=== PATIENT | female | born 1995 | race Caucasian/White ===

== ENCOUNTER 2018-12-13 08:47 | Emergency (ER) | payer MEDICAID, OTHER ==
[2018-12-13 08:51] VITALS: BMI 26.4
[2018-12-13 08:53] VITALS: O2SAT 100
[2018-12-13] MEDS ORDERED: Lactated Ringer's 1,000 ML IV SCH (11:00)
--- NOTE | 2018-12-13 11:12 | ED PDOC ---
HPI: Headache Time Seen by Provider: 12/13/18 10:32 Chief Complaint (Nursing): Headache History Per: Patient Additional Complaint(s): Pt. states yesterday evening she developed a bitemporal headache. Reports headache has progressively worsened. She also developed 2 episodes of non-bloody vomiting last night and 1 episode of non-bloody vomiting this morning after atte mpting to eat breakfast. Pt. further states she is currently 21 weeks and is under the the care of Dr. Whittaker. States before coming to ED room she was in the [facility] and where the baby was monitored and she was given Tylenol 650mg which has yet to provide any relief of headache. Headache was gradual in onset and is associated with light sensitivity. Also reports she normally drinks coffee daily but since she is she was advised by Dr. Whittaker to drink only half a cup of coffee/day. Yesterday and today she did not have any coffee. Denies fever, chills, hematemesis, abdominal pain, pelvic pain, vaginal bleeding, head injury, sudden onset of headache hx of preeclampsia, dysuria. Past Medical History Reviewed: Historical Data, Nursing Documentation, Vital Signs Vital Signs: Last Vital Signs Temp 98.8 F 12/13/18 08:51 Pulse 85 12/13/18 08:51 Resp 17 12/13/18 08:51 BP 105/68 12/13/18 08:51 Pulse Ox 100 12/13/18 08:51 - Surgical History Surgical History: Appendectomy - Family History Family History: States: No Known Family Hx - Living Arrangements Living Arrangements: With Family - Immunization History Hx Tetanus Toxoid Vaccination: No Hx Influenza Vaccination: No Hx Pneumococcal Vaccination: No - Home Medications Home Medications: Ambulatory Orders Medication Instructions Recorded Ciprofloxacin [Cipro] 1 tab PO BID #14 tab 08/24/15 Famotidine [Pepcid] 20 mg PO BID #20 tab 08/24/15 Ondansetron [Zofran Odt] 4 mg PO .Q4-6 H PRN #20 odt 08/24/15 Nitrofurantoin Macrocrystals 100 mg PO BID #14 cap 12/13/18 [Macrobid] - Allergies Allergies/Adverse Reactions: Allergies Allergy/AdvReac Type Severity Reaction Status Date / Time No Known Allergies Allergy Verified 08/24/15 12:36 Review of Systems ROS Statement: Except As Marked, All Systems Reviewed And Found Negative Gastrointestinal: Positive for: Vomiting Neurological: Positive for: Headache Physical Exam - Physical Exam Appears: Positive for: Well, Non-toxic, No Acute Distress Head Exam: Positive for: ATRAUMATIC, NORMAL INSPECTION, NORMOCEPHALIC Skin: Positive for: Normal Color, Warm. Negative for: Rash Eye Exam: Positive for: Normal appearance, EOMI, PERRL. Negative for: Nystagmus ENT: Positive for: Normal ENT Inspection Neck: Positive for: Normal, Painless ROM, Supple Gastrointestinal/Abdominal: Positive for: Normal Exam (gravid), Soft. Negative for: Tenderness Extremity: Positive for: Other (equal knot picker cloth strength b/l) Neurological/Psych: Positive for: Awake, Alert, Oriented (x3), Gait (steady, unassisted) - Laboratory Results Result Diagrams: 12/13/18 11:20 12/13/18 11:20 - ECG O2 Sat by Pulse Oximetry: 100 - Progress ED Course And Treament: Labs, UA, reglan 10mg PO, IV LR bolus ordered. Re-evaluation Time: 12:30 (Reports good relief of headache and nausea. Pt. had meal in ED without any vomiting. Advised to f/u with Dr. Whittaker (pt's states Dr. Whittaker was contacted while she was in the OB ED) for further evaluation but is to return to ED immediately if symptoms worsen.) Condition: Re-examined, Improved Disposition - Clinical Impression Clinical Impression: Acute headache, UTI (urinary tract infection) - Patient ED Disposition Is Patient to be Admitted: No - Disposition Referrals: Aden Whittaker MD [Staff Provider] - Disposition: Routine/Home Disposition Time: 12:45 Condition: IMPROVED Additional Instructions: FOLLOW UP WITH YOUR OBGYN PREVIOUSLY SCHEDULED RETURN TO ED IMMEDIATELY IF SYMPTOMS WORSEN JCARLOS GALLOWAY, thank you for letting us take care of you today. Your provider was Nav Cooper MD and you were treated for 21 WEEKS PREG; HEADACHE. The emergency medical care you received today was directed at your acute symptoms. If you were prescribed any medication, please fill it and take as directed. It may take several days for your symptoms to resolve. Return to the Emergency Department if your symptoms worsen, do not improve, or if you have any other problems. Please contact your doctor or call one of the physicians/clinics you have been referred to that are listed on the Patient Visit Information form that is included in your discharge packet. Bring any paperwork you were given at discharge with you along with any medications you are taking to your follow up visit. Our treatment cannot replace ongoing medical care by a primary care provider outside of the emergency department. Thank you for allowing the [facility] team to be part of your care today. If you had an X-Ray or CT scan: A Radiologist will review the ED reading if any change in treatment is needed we will contact you. If you had a blood, urine, or wound culture: It will take several days for the results, if any change in treatment is needed we will contact you. If you had an STI test: It will take 48 hours for the results. Please call after 1 week if you have not heard back. Prescriptions: Nitrofurantoin Macrocrystals [Macrobid] 100 mg PO BID #14 cap Instructions: Urinary Tract Infection, Adult (DC), Acute Headache (ED) Forms: [employer] (Italian), [facility] ED School/Work Excuse
[2018-12-13 11:37] LABS: BASO # 0.1 K/uL (0.0-0.2); BASO % 0.7 % (0.0-2.0); EOS % 0.3 % (0.0-4.0); HEMOGLOBIN 11.4 g/dL (12.0-16.0); LYMPH # 1.9 K/uL (1.0-4.3); LYMPH % 20.9 % (20.0-40.0); MEAN CELL VOLUME 95.1 fl (81.0-99.0); MEAN CORPUSCULAR HEMOGLOBIN 32.6 pg (27.0-31.0); MEAN CORPUSCULAR HGB CONC 34.2 g/dL (33.0-37.0); MEAN PLATELET VOLUME 8.7 fl (7.2-11.7); MONO # 0.5 K/uL (0.0-0.8); MONO % 5.7 % (0.0-10.0); NEUT # 6.7 K/uL (1.8-7.0); NEUT % 72.4 % (50.0-75.0); RBC 3.5 Mil/uL (3.80-5.20); RED CELL DISTRIBUTION WIDTH 13.6 % (11.5-14.5); WHITE BLOOD COUNT 9.2 K/uL (4.8-10.8)
[2018-12-13 11:47] LABS: ALB/GLOB RATIO 1.1 (1.0-2.1); ALBUMIN 3.9 g/dL (3.5-5.0); ALT/SGPT 25 U/L (9-52); AST/SGOT 25 U/L (14-36); BLOOD UREA NITROGEN 6 mg/dl (7-17); CALCIUM 8.9 mg/dL (8.4-10.2); GFR NON-AFRICAN AMERICAN > 60
[2018-12-13 11:54] LABS: SQUAMOUS EPITHIAL < 1 /hpf (0-5); URINE BILIRUBIN NEGATIVE (NEGATIVE); URINE BLOOD NEGATIVE (NEGATIVE); URINE CLARITY CLEAR (Clear); URINE COLOR STRAW (YELLOW); URINE GLUCOSE (UA) NEG (NEGATIVE); URINE LEUKOCYTE ESTERASE SMALL Leu/uL (Negative); URINE PROTEIN NEGATIVE (NEGATIVE); URINE UROBILINOGEN 0.2-1.0 mg/dL (0.2-1.0)
[2018-12-13 13:59] VITALS: RESP 18; TEMP 97.7
[2018-12-13 18:01] VITALS: BP 114/70; PULSE 91
--- NOTE | 2018-12-14 06:58 | OBHP ---
Datetime: 12/13/2018 09:37 IP Adm Impression: , intrauterine IP Chief Complaint Other: HEADACHE IP Admit Plan: Observation/Evaluation Admit Comment, IP Provider: This is 23 yo female presented to [facility] due to headache, patient rep ort headache is 8 out of 10, mostly on the frontal area, worsen with light and loud sound. Patient re port having nausea, and vomiting twice today was last episode. Patient also report having blurry visi on. Otherwise patient have no other symptoms. she have good appetite, denies dizziness, chest pain, sob, abdominal pain/contraction, dysuria polyuria, vag discharg/bleed/ watergush. ROS NEG Except mentioned in HPI, PT denies worst headache of her life. Allergy none [facility] [employer] [place] PMH none PSH appendectomy OBGYN: 1 miscarriage, 1 NVD PFH Mom arthritis, DAD heart problem SOcial Denies smoke, drink, drug use. 9:46 Assessment and plan This is 23 yo female presented to [facility] due to headache. Vitals WNL ( blood pressure 106/67) physical examination WNL will start on tylenol 650mg and follow up YSabri PGY1 Case discussed with Dr. Manzano OB Hospitalist on-call. This pt was seen and examined with PGY1. Agree with note. Dr Whittaker was contacted. Transfer pt to ER. ED notified. MAHNDO Pelvic Type - PN: Not Done Extremities - PN: Normal Abdomen - PN: Normal Back - PN: Normal Breast - PN: Not Done Lungs - PN: Normal Heart - PN: Normal Thyroid - PN: Normal Neurologic - PN: Normal HEENT - PN: Normal General - PN: Normal Comments, ACOG Physical Exam: no acute distress HEart s1 s2 heard no extra heart sound lung clear abd non-tender BS + CN II-XII intact Gestation - Est Wks by US: 21.5 EGA AdmitDate IP: 21.5 Vital Signs Provider: Reviewed; Within Normal Limits IP Chief Complaint: Maternal discomfort; Other Genitourinary Exam: Normal DTRs - PN: Not Done
--- NOTE | 2018-12-14 07:00 | OBDCSUM ---
Datetime: 12/13/2018 10:14 Discharge Comment, Provider: Dischared to ER
== END 2018-12-13 13:59 | disposition home or self-care (01) ==
LOC: H.EROB2 08:47 → H.EROB 09:16 → H.EROB2 10:30 → H.EROB 10:30 → H.EROB2 13:59
DX: O26.92 Pregnancy related conditions, unspecified, second trimester (principal); R51 Headache; R11.0 Nausea; Z3A.21 21 weeks gestation of pregnancy
CPT/HCPCS: 80053; 81003; 85025; 87086; 96360; 99283; J7120